=== PATIENT | female | born 1940 | race Caucasian/White ===

== ENCOUNTER 2019-07-06 16:32 | Emergency (ER) | payer OTHER, SELFPAY ==
--- NOTE | ~2019-07-06 | XR_ITS ---
EXAMINATION: XR chest 2V DATE: 07/06/2019 17:19 INDICATION: Shortness of breath, diffuse chest tightness, cough TECHNIQUE: PA and lateral views of the chest are obtained. COMPARISON: 04/06/2019 FINDINGS: The lungs are hyperinflated but free of acute opacities. There is no pleural effusion or pn eumothorax. The cardiomediastinal silhouette is normal. There is moderate thoracic spondylosis. IMPRESSION: 1. No acute cardiopulmonary abnormality. Reviewed, dictated and finalized at location A.
[2019-07-06 16:40] VITALS: BP 155/88; PULSE 71; RESP 20; TEMP 36.5; O2SAT 100
--- NOTE | 2019-07-06 16:49 | ED.SOB ---
HPI - SOB/Dyspnea General Chief Complaint: Shortness of Breath/Dyspnea Stated Complaint: tightness in chest, breathing troubles,cough Time Seen by Provider: 07/06/19 16:50 Source: patient and RN notes reviewed Mode of arrival: ambulatory Limitations: no limitations History of Present Illness HPI Narrative: 78-year-old female comes in with 1 weeks worth of symptoms. She feels short of breath a slight cough no fever. She has a history of COPD. She has been having the symptoms off and on every 6 weeks it returns. She is currently on steroids from her primary care physician. MD elicited complaint: shortness of breath Pertinent past history: COPD Onset (ago): week(s) (1) Timing: intermittent Severity: moderate Known history of: COPD Related Data Home oxygen amount: 2 liters Home Medications Medication Instructions Recorded Confirmed dicyclomine 20 mg PO TID PRN 04/21/19 07/06/19 fluticasone propionate [Flonase 1 spray NASAL BID 04/21/19 07/06/19 Allergy Relief] ipratropium bromide 2.5 ml INHALATION TID 04/21/19 07/06/19 Allergies Allergy/AdvReac Type Severity Reaction Status Date / Time morphine Allergy Intermediate 3 DAY Verified 05/02/19 16:20 MEMORY LOSS azithromycin Allergy Unknown N/V Verified 05/02/19 16:20 cephalexin Allergy Unknown N/V Verified 05/02/19 16:20 citalopram Allergy Unknown Unknown Verified 05/02/19 16:20 dicyclomine Allergy Unknown Unknown Verified 05/02/19 16:20 escitalopram Allergy Unknown Unknown Verified 05/02/19 16:20 iodine Allergy Unknown Unknown Verified 05/02/19 16:20 levofloxacin Allergy Unknown N/V Verified 05/02/19 16:20 levothyroxine sodium Allergy Unknown N/V Verified 05/02/19 16:20 methylprednisolone Allergy Unknown unknown Verified 05/02/19 16:20 mirtazapine Allergy Unknown unknown Verified 05/02/19 16:20 NSAIDS (Non-Steroidal Allergy Unknown unknown Verified 05/02/19 16:20 Anti-Inflamma pravastatin Allergy Unknown unknown Verified 05/02/19 16:20 Sulfa (Sulfonamide Allergy Unknown N/V Verified 05/02/19 16:20 Antibiotics) tetracycline Allergy Unknown N/V Verified 05/02/19 16:20 varenicline Allergy Unknown unknown Verified 05/02/19 16:20 doxycycline AdvReac Severe N/V Verified 05/02/19 16:20 Contrast Media Allergy Unknown UNKNOWN Uncoded 10/12/18 10:37 Review of Systems Review of Systems: All systems reviewed & are unremarkable except as noted in HPI and below PMFSH Past Medical History Medical History Allergic rhinitis Arrhythmia Arthritis COPD (chronic obstructive pulmonary disease) Depression DVT (deep venous thrombosis) GERD (gastroesophageal reflux disease) Hypertension Hypothyroidism Pneumonia Seasonal allergies Spinal stenosis Sweating Surgical History Surgical History H/O colectomy H/O parotidectomy History of cholecystectomy Social History Social History Smoking status: Light tobacco smoker Alcohol intake: never Substance use: never Substance use type: does not use Exam Const: General: healthy appearing, no acute distress and alert Nutritional Appearance: well nourished and thin Orientation/consciousness: patient oriented x3 HENMT: Head: normal to inspection Ears: external ears normal General nose exam: Normal external nose present Face and sinus: normal facial exam Mouth: Yes moist mucous membranes Eyes: Conjunctivae: conjunctivae normal Pupils: Equal, round and reactive pupils present EOM: EOMs intact bilaterally Neck: Neck: normal visual inspection and no lymphadenopathy Resp: Effort & Inspection: normal respiratory effort Auscultation: clear to auscultation bilaterally ( Short air exchange.) Cardio: Rate: regular rate Rhythm: regular rhythm GI: GI Palp: Yes Soft to palpation and No Tenderness to palpation present (GI) Auscultation: normal bowel sounds Urin
[2019-07-06 16:57] VITALS: O2SAT 100
[2019-07-06 17:28] LABS: Basophils Absolute Auto 0.01 K/mm3 (0.00-0.10); Basophils Percent Auto 0.2 % (0.0-1.0); Hematocrit 38.3 % (35.0-42.0); Hemoglobin 12.8 g/dL (11.7-13.8); Immature Granulocyte Absolute 0.03 K/mm3 (0.00-0.00); Immature Granulocyte Percent A 0.5 % (0.0-0.0); Lymphocytes Absolute Auto 0.66 K/mm3 (1.10-4.50); Lymphocytes Percent Auto 10.4 % (18.0-42.0); Mean Corpuscular HGB Conc 33.4 g/dL (32.0-36.0); Mean Corpuscular Hemoglobin 31.5 pg (27.0-31.0); Mean Corpuscular Volume 94.3 fL (78.0-102.0); Mean Platelet Volume 8.7 fl (9.2-11.8); Monocytes Absolute Auto 0.22 K/mm3 (0.10-0.90); Monocytes Percent Auto 3.5 % (2.0-11.0); Neutrophils Absolute Auto 5.5 K/mm3 (1.7-7.2); Neutrophils Percent Auto 85.4 % (50.0-70.0); Platelet Count Result 296 K/mm3 (150-420); Red Blood Count 4.06 M/mm3 (4.20-5.40); Red Cell Distribution Width 12.5 % (11.6-14.4); White Blood Count 6.4 K/mm3 (4.8-10.8)
[2019-07-06 17:43] LABS: Alanine Aminotransferase 32 U/L (14-59); Albumin Level 3.7 g/dL (3.4-5.0); Alkaline Phosphatase 76 U/L (46-116); Anion Gap 9.1 mmol/L (7-16); Aspartate Amino Transferase 17 U/L (15-37); Bilirubin,Total 0.2 mg/dL (0.00-1.00); Blood Urea Nitrogen 10 mg/dL (7-18); Calcium 9.3 mg/dL (8.5-10.1); Carbon Dioxide 34 mmol/L (21-32); Chloride 94 mmol/L (98-108); Estimated CRCL calculation 44 ml/min; Estimated Glomerular Filt Rate > 60; Glucose 114 mg/dL (70-99); Osmolality Calculated 276 mOsm/kg (285-295); Potassium 4.1 mmol/L (3.5-5.1); Sodium 133 mmol/L (136-145); Total Protein 6.8 g/dL (6.4-8.2)
[2019-07-06 17:45] LABS: CRP < 0.2 mg/dL (0.0-0.9)
[2019-07-06 18:04] LABS: Thyroid Stimulating Hormone 0.74 uIU/mL (0.36-3.74)
[2019-07-06] MEDS: AMOXICILLIN 500 MG CAPSULE PO (18:22)
[2019-07-06 18:23] VITALS: RESP 20; O2SAT 100
== END 2019-07-06 18:24 | disposition home or self-care (01) ==
PROVIDERS: Emergency Provider Emergency Medicine; PCP Family Medicine
DX: J44.9 Chronic obstructive pulmonary disease, unspecified (principal); K21.9 Gastro-esophageal reflux disease without esophagitis; I10 Essential (primary) hypertension; E03.9 Hypothyroidism, unspecified
CPT/HCPCS: 36415; 71046; 80053; 84443; 85025; 86140; 99283; A9270

== ENCOUNTER 2019-07-17 15:20 | Emergency (ER) | payer OTHER, SELFPAY ==
[2019-07-17 15:35] VITALS: BP 126/76; PULSE 65; RESP 13; TEMP 36.6; O2SAT 100
--- NOTE | 2019-07-17 16:24 | ED.SOB ---
HPI - SOB/Dyspnea General Chief Complaint: Shortness of Breath/Dyspnea Stated Complaint: SOB Source: patient Mode of arrival: ambulatory History of Present Illness HPI Narrative: 78 y.o. with COPD with frequent exacerbations over the past 3 months. Seen on 07/05 when she was given Amoxil 500 mg TID x 10 days and Prednisone 10 mg daily x 18 d. (long enough to get her in to see Dr. Luciano, Pul. at [facility]). She didn't feel like 10 mg really helped. Over the last few months she always feels better when she is on higher dose prednisone but gradually worsens off of it. She feels okay when she's in a chair with her O2 on at 2 liters, but is unable to walk and talk on the phone when she's off her O2. Today she is feeling her SOB has worsened a small amount over the past 2 days. She has actually been coughing less than usual, but her usual amount (about 1 medicine cup full) of cloudy white sputum. She contacted Dr Luciano's office to see if she could be put in higher dose predisone to last until her appt. on 07/24. She was told to be seen in the E.D. She is nebulizing her 3 albuterol, ipratropium and budesonide as directed daily. Pt. c/o of chronic nasal congestion x years; feels if she could only breath through her nose she'd be so much better. She tries not to use O2 all of the time because she's afraid she'll become dependent on it. No hx of cancer, DVT, PE, recent surgery or immobility. Exacerbating factors: lying flat and exertion Relieving factors: oxygen Associated symptoms: chest pain (About once a day she has tightness in her chest which lasts less than 1 -2 min ) Related Data Home Medications Medication Instructions Recorded Confirmed dicyclomine 20 mg PO TID PRN 04/21/19 07/17/19 fluticasone propionate [Flonase 1 spray NASAL BID 04/21/19 07/17/19 Allergy Relief] ipratropium bromide 2.5 ml INHALATION TID 04/21/19 07/17/19 Allergies Allergy/AdvReac Type Severity Reaction Status Date / Time morphine Allergy Intermediate 3 DAY Verified 05/02/19 16:20 MEMORY LOSS azithromycin Allergy Unknown N/V Verified 05/02/19 16:20 cephalexin Allergy Unknown N/V Verified 05/02/19 16:20 citalopram Allergy Unknown Unknown Verified 05/02/19 16:20 dicyclomine Allergy Unknown Unknown Verified 05/02/19 16:20 escitalopram Allergy Unknown Unknown Verified 05/02/19 16:20 iodine Allergy Unknown Unknown Verified 05/02/19 16:20 levofloxacin Allergy Unknown N/V Verified 05/02/19 16:20 levothyroxine sodium Allergy Unknown N/V Verified 05/02/19 16:20 methylprednisolone Allergy Unknown unknown Verified 05/02/19 16:20 mirtazapine Allergy Unknown unknown Verified 05/02/19 16:20 NSAIDS (Non-Steroidal Allergy Unknown unknown Verified 05/02/19 16:20 Anti-Inflamma pravastatin Allergy Unknown unknown Verified 05/02/19 16:20 Sulfa (Sulfonamide Allergy Unknown N/V Verified 05/02/19 16:20 Antibiotics) tetracycline Allergy Unknown N/V Verified 05/02/19 16:20 varenicline Allergy Unknown unknown Verified 05/02/19 16:20 doxycycline AdvReac Severe N/V Verified 05/02/19 16:20 Contrast Media Allergy Unknown UNKNOWN Uncoded 10/12/18 10:37 Review of Systems Constitutional: Constitutional: Denies chills and Denies fever(s) ENT: Reports system reviewed and no additional complaints, except as documented Cardiovascular: Cardiovascular: Reports no additional cardiovascular complaints Respiratory: Respiratory: Reports no additional respiratory complaints Gastrointestinal: Comments: chronic diarrhea since colectomy Genitourinary: Genitourinary: Denies dysuria Musculoskeletal: Musculoskeletal: Reports muscle cramps (toes have been cramping the last few days. ) Neurologic: Denies headache(s) Psychiatric: Comments: Chronic anxiety, possibly somewhat worse over the last month, since outbreak of Covid-19 [facility] Social History Social History (Updated 07/17/19 @ 17:03 by Felix Steven MD) Social History: lives at home. Children visit every few weeks, bring groc
[2019-07-17 16:37] VITALS: RESP 15; O2SAT 100
== END 2019-07-17 16:46 | disposition home or self-care (01) ==
PROVIDERS: Emergency Provider Family Medicine; PCP Family Medicine
DX: J44.1 Chronic obstructive pulmonary disease with (acute) exacerbation (principal); F17.200 Nicotine dependence, unspecified, uncomplicated
CPT/HCPCS: 99283

== ENCOUNTER 2019-08-17 09:03 | Outpatient (CLI) | payer OTHER, SELFPAY ==
--- NOTE | ~2019-08-17 | XR_ITS ---
XR chest 2V DATE: 08/17/2019 09:33 INDICATION: Shortness of breath. COPD. TECHNIQUE: 2 views COMPARISON: 07/05/2021 view chest FINDINGS: Bilateral hyperinflation and relative diaphragm flattening consistent with COPD. No pulmonary infiltrate or consolidation, pleural effusion or pulmonary vascular congestion or pneumo thorax is detected. Central pulmonary arteries are prominent with relatively quick peripheral tapering, suggesting pulmon shant hypertension. No hilar or mediastinal mass lesion or adenopathy is evident. Heart size is within normal limits. Is aortic calcification and mild tortuosity. Diffuse osteopenia. IMPRESSION: COPD and pulmonary hypertension Aortic atherosclerosis No active pulmonary disease Reviewed, dictated and finalized at location A.
[2019-08-17 09:17] LABS: Basophils Absolute Auto 0.03 K/mm3 (0.00-0.10); Basophils Percent Auto 0.3 % (0.0-1.0); Eosinophils Absolute Auto 0.19 K/mm3 (0.02-0.50); Eosinophils Percent Auto 2.1 % (1.0-6.0); Hematocrit 39.9 % (35.0-42.0); Hemoglobin 13.3 g/dL (11.7-13.8); Immature Granulocyte Absolute 0.05 K/mm3 (0.00-0.00); Immature Granulocyte Percent A 0.6 % (0.0-0.0); Lymphocytes Absolute Auto 3.11 K/mm3 (1.10-4.50); Mean Corpuscular HGB Conc 33.3 g/dL (32.0-36.0); Mean Corpuscular Volume 96.1 fL (78.0-102.0); Mean Platelet Volume 8.3 fl (9.2-11.8); Monocytes Absolute Auto 0.84 K/mm3 (0.10-0.90); Monocytes Percent Auto 9.5 % (2.0-11.0); Neutrophils Absolute Auto 4.7 K/mm3 (1.7-7.2); Neutrophils Percent Auto 52.5 % (50.0-70.0); Platelet Count Result 298 K/mm3 (150-420); Red Blood Count 4.15 M/mm3 (4.20-5.40); Red Cell Distribution Width 12.4 % (11.6-14.4); White Blood Count 8.9 K/mm3 (4.8-10.8)
[2019-08-17 09:59] LABS: Hemoglobin A1C 6.3 % (<5.7)
[2019-08-17 10:05] LABS: Alanine Aminotransferase 38 U/L (14-59); Albumin Level 3.8 g/dL (3.4-5.0); Alkaline Phosphatase 76 U/L (46-116); Anion Gap 8.8 mmol/L (7-16); Aspartate Amino Transferase 22 U/L (15-37); Bilirubin,Total 0.2 mg/dL (0.00-1.00); Blood Urea Nitrogen 11 mg/dL (7-18); Calcium 9.4 mg/dL (8.5-10.1); Carbon Dioxide 35 mmol/L (21-32); Chloride 97 mmol/L (98-108); Estimated Glomerular Filt Rate > 60; Glucose 80 mg/dL (70-99); Osmolality Calculated 282 mOsm/kg (285-295); Potassium 3.8 mmol/L (3.5-5.1); Sodium 137 mmol/L (136-145); Thyroid Stimulating Hormone 4.86 uIU/mL (0.36-3.74); Total Protein 6.6 g/dL (6.4-8.2)
[2019-08-21 22:27] LABS: Albumin 3.9 g/dL (3.8-4.8); Alpha 1 Globulin 0.3 g/dL (0.2-0.3); Alpha 2 Globulin 0.7 g/dL (0.5-0.9); Beta 1 Globulin 0.5 g/dL (0.4-0.6); Gamma Globulin 0.7 g/dL (0.8-1.7); Protein, Total 6.3 g/dL (6.1-8.1)
== END 2019-08-17 09:04 | disposition home or self-care (01) ==
PROVIDERS: PCP Family Medicine; Visit Provider Physician Assistant
DX: R53.83 Other fatigue (principal); R73.9 Hyperglycemia, unspecified; R06.02 Shortness of breath
CPT/HCPCS: 36415; 71046; 80053; 83036; 84155; 84165; 84443; 85025

== ENCOUNTER 2019-08-18 09:00 | Outpatient (CLI) | payer OTHER, SELFPAY ==
[2019-08-23 16:06] LABS: Albumin 24 Hr Urine 38 %; Creatinine, 24 Hr Urine 0.54 g/24 h (0.50-2.15); Total Protein/Creatinine Ratio 369 mg/g creat (<115)
== END 2019-08-18 09:01 | disposition home or self-care (01) ==
LOC: CHSLAB 09:02
PROVIDERS: Physician Assistant; PCP Family Medicine; Visit Provider Family Medicine
DX: R53.83 Other fatigue (principal)
CPT/HCPCS: 81050; 82570; 84156; 84166

== ENCOUNTER 2019-09-19 15:35 | Outpatient (RCR) | payer OTHER, SELFPAY ==
[2019-09-19 16:03] LABS: Basophils Percent Auto 0.3 % (0.2-1.2); Eosinophils Absolute Auto 0.1 K/mm3 (0-0.3); Eosinophils Percent Auto 0.4 % (0-4.4); Hematocrit 40.9 % (37.0-47.0); Hemoglobin 13.6 g/dL (12.0-15.0); Immature Granulocyte Absolute 0.05 K/mm3 (0.00-0.031); Immature Granulocyte Percent A 0.4 % (0-0.5); Lymphocytes Absolute Auto 1.12 K/mm3 (0.9-3.2); Lymphocytes Percent Auto 9.4 % (18.3-44.2); Mean Corpuscular HGB Conc 33.3 g/dl (32-36); Mean Corpuscular Hemoglobin 31.6 pg (26-34); Mean Corpuscular Volume 95.1 fl (80-100); Monocytes Absolute Auto 0.4 K/mm3 (0.1-0.6); Monocytes Percent Auto 3.3 % (2.6-8.5); Neutrophils Absolute Auto 10.3 K/mm3 (1.3-6.7); Neutrophils Percent Auto 86.2 % (45.5-73.1); Platelet Count Result 307 k/mm3 (150-375); Red Cell Distribution Width 12.2 % (11.5-14.5); White Blood Count 11.9 K/mm3 (4.5-10.0)
[2019-09-19 17:42] LABS: Iron 112 ug/dL (37-170)
[2019-09-19 17:44] LABS: Alanine Aminotransferase 29 U/L (4-35); Albumin Level 4.3 g/dL (3.5-5.1); Alkaline Phosphatase 82 U/L (38-126); Aspartate Amino Transferase 26 U/L (14-36); Bilirubin,Total 0.4 mg/dL (0.2-1.3); Blood Urea Nitrogen 12 mg/dL (7-17); Calcium 9.3 mg/dL (8.4-10.2); Carbon Dioxide 34 mmol/L (22-30); Chloride 88 mmol/L (98-107); Estimated Glomerular Filt Rate > 60; Glucose 123 mg/dL (65-105); Lactate Dehydrogenase 305 U/L (313-618); Potassium 4.1 mmol/L (3.4-5.0); Sodium 129 mmol/L (137-145)
[2019-09-19 17:53] LABS: Percent Iron Saturation 30 % (20-50)
[2019-09-19 18:13] LABS: Thyroid Stimulating Hormone 0.541 uIU/mL (0.465-4.680)
[2019-09-19 18:52] LABS: Folic Acid > 20.0 ng/mL (2.76->20)
[2019-09-22 19:37] LABS: Methylmalonic Acid 357 nmol/L (87-318)
[2019-09-23 18:02] LABS: Soluble Transferrin Receptor 1.16 mg/L (0.76-1.76)
== END 2019-12-18 23:59 | disposition home or self-care (01) ==
LOC: ANHLAB 15:35
PROVIDERS: Visit Provider Internal Medicine Hematology & Oncology
DX: D64.9 Anemia, unspecified (principal)
CPT/HCPCS: 36415; 80053; 82607; 82728; 82746; 83540; 83550; 83615; 83921; 84238; 84443; 85025

== ENCOUNTER 2020-07-21 14:55 | Emergency (ER) | payer OTHER, SELFPAY ==
--- NOTE | ~2020-07-21 | XR_ITS ---
EXAMINATION: XR lumbar spine 2-3V EXAM DATE: 07/21/2020 16:54 INDICATION: Low back pain for a week. No known recent injury. TECHNIQUE: Lumber spine frontal, lateral, lateral L5-S1 projections for interpretation. Comparison is made to prior examination from 08/01/2015. FINDINGS: There is mild to moderate anterior wedging of T12 vertebral body, could be chronic but is new compared to 2016, therefore age-indeterminate. There is severe disc disease L4-5, moderate to sev ere at L5-S1, moderate at L2-3 and L3-4. There is moderate lumbar arthropathy. Moderate aortic arteri al sclerosis. Cholecystectomy clips. The vertebral bodies are aligned in the AP dimension. Sacrum, sa croiliac joints, sacral arcuate lines are intact. IMPRESSION: 1. T12 mild to moderate age-indeterminate compression fracture. 2. Moderate to severe lower lumbar spondylosis. Reviewed, dictated and finalized at location A.
[2020-07-21 16:19] VITALS: BP 120/80; PULSE 90; RESP 16; TEMP 36.6; O2SAT 95
[2020-07-21 16:32] LABS: Appearance Urine Clear (Clear); Bilirubin Urine Negative (Negative); Color Urine Yellow (Yellow); Glucose Urine UA Negative (Negative); Ketones Urine Negative (Negative); Leukocyte Esterase Ur Trace (Negative); Nitrate Urine Negative (Negative); Protein Urine Negative (Negative); Urobilinogen Urine 0.2 mg/dL (0.2-1.0)
--- NOTE | 2020-07-21 16:41 | ED.BACK ---
HPI - Back Pain/Injury General Chief Complaint: Unspecified Stated Complaint: lower back pain Source: patient Mode of arrival: ambulatory Limitations: no limitations Related Data Home Medications Medication Instructions Recorded Confirmed dicyclomine 20 mg PO TID PRN 04/21/19 10/24/19 Allergies Allergy/AdvReac Type Severity Reaction Status Date / Time morphine Allergy Intermediate 3 DAY Verified 10/24/19 10:53 MEMORY LOSS azithromycin Allergy Unknown N/V Verified 10/24/19 10:53 cephalexin Allergy Unknown N/V Verified 10/24/19 10:53 citalopram Allergy Unknown Unknown Verified 10/24/19 10:53 dicyclomine Allergy Unknown Unknown Verified 10/24/19 10:53 escitalopram Allergy Unknown Unknown Verified 10/24/19 10:53 iodine Allergy Unknown Unknown Verified 10/24/19 10:53 levofloxacin Allergy Unknown N/V Verified 10/24/19 10:53 levothyroxine sodium Allergy Unknown N/V Verified 10/24/19 10:53 methylprednisolone Allergy Unknown unknown Verified 10/24/19 10:53 mirtazapine Allergy Unknown unknown Verified 10/24/19 10:53 NSAIDS (Non-Steroidal Allergy Unknown unknown Verified 10/24/19 10:53 Anti-Inflamma pravastatin Allergy Unknown unknown Verified 10/24/19 10:53 Sulfa (Sulfonamide Allergy Unknown N/V Verified 10/24/19 10:53 Antibiotics) tetracycline Allergy Unknown N/V Verified 10/24/19 10:53 varenicline Allergy Unknown unknown Verified 10/24/19 10:53 doxycycline AdvReac Severe N/V Verified 10/24/19 10:53 Contrast Media Allergy Unknown UNKNOWN Uncoded 10/12/18 10:37 [facility] Past Medical History Medical History (Updated 07/21/20 @ 17:46 by Jefry Castro MD) Allergic rhinitis Arrhythmia Arthritis COPD (chronic obstructive pulmonary disease) Depression DVT (deep venous thrombosis) GERD (gastroesophageal reflux disease) Hypertension Hypothyroidism Pneumonia Seasonal allergies Spinal stenosis Sweating Surgical History Surgical History H/O colectomy H/O parotidectomy History of cholecystectomy Family History Family History Mother Family history of malignant neoplasm of breast in first degree relative Family history of malignant neoplasm Family history of malignant neoplasm of bone Family history of malignant neoplasm of breast Father Cerebrovascular accident Sibling Family history of malignant neoplasm Social History Social History (Updated 10/24/19 @ 10:57 by Alice Ding) Social History: lives at home. Children visit every few weeks, bring groceries, adhere to social distancing. Pt. has been using hand keeper helper and disinfecting surfaces. Smoking status: Light tobacco smoker Alcohol intake: never Substance use: never Substance use type: does not use Gender identity (if verbalized by the patient): Female Course Vital Signs Vital signs: Vital Signs Temperature 36.6 C 07/21/20 16:19 Pulse Rate 90 07/21/20 16:19 Respiratory Rate 16 07/21/20 16:19 Blood Pressure 120/80 07/21/20 16:19 Pulse Oximetry 95 07/21/20 16:19 Temperature 36.6 C 07/21/20 16:19 Pulse Rate 90 07/21/20 16:19 Respiratory Rate 16 07/21/20 16:19 Blood Pressure 120/80 07/21/20 16:19 Pulse Oximetry 95 07/21/20 16:19 MDM - Back Pain/Injury Lab Data Labs: Lab Results 07/21/20 Range/Units 16:22 Urine Color Pending Urine Appearance Pending Urine pH Pending Ur Specific Jet Pending Urine Protein Pending Urine Glucose (UA) Pending Urine Ketones Pending Ur Blood (Man) Pending Urine Nitrate Pending Urine Bilirubin Pending Urine Urobilinogen Pending Ur Leukocyte Esterase Pending Discharge Plan Discharge Clinical Impression: Compression fracture, Back pain, Acute UTI Patient Disposition: Home, Self-Care Condition: Stable Instructions: Antibiotic Form, Vertebral Compression Fracture (ED), Urinar
[2020-07-21 16:46] LABS: Add Urine Microscopic? YES; Blood Urine Trace-Intact (Negative); Squamous Epithelial Cell Urine Moderate /hpf (Few); WBC Urine 0-3 /hpf (0-3)
[2020-07-21 16:47] LABS: Bacteria Urine Trace /hpf
[2020-07-21] MEDS: DEXAMETHASONE SOD PHOS INJ 4 MG/ML VIAL 10 MG BY MOUTH (17:07)
[2020-07-21] MEDS: BACLOFEN 10 MG TABLET 20 MG PO (17:07)
[2020-07-21] MEDS: KETOROLAC 30 MG/ML VIAL (*BKC) IM (17:07)
--- NOTE | 2020-07-21 17:48 | ED.BACK ---
HPI - Back Pain/Injury General Chief Complaint: Unspecified Stated Complaint: lower back pain Time Seen by Provider: 07/21/20 16:25 Source: patient Mode of arrival: ambulatory Limitations: no limitations History of Present Illness HPI Narrative: Patient comes in with back pain, at about T12, which has been going on since that has been moderately severe and ongoing. This started spontaneously after reaching in an unusual way. She states Tylenol #3 given by another provider has made her nauseated. Nothing has really helped her to feel any better. Because pain has been ongoing, she comes into ER Related Data Home Medications Medication Instructions Recorded Confirmed dicyclomine 20 mg PO TID PRN 04/21/19 10/24/19 Allergies Allergy/AdvReac Type Severity Reaction Status Date / Time morphine Allergy Intermediate 3 DAY Verified 10/24/19 10:53 MEMORY LOSS azithromycin Allergy Unknown N/V Verified 10/24/19 10:53 cephalexin Allergy Unknown N/V Verified 10/24/19 10:53 citalopram Allergy Unknown Unknown Verified 10/24/19 10:53 dicyclomine Allergy Unknown Unknown Verified 10/24/19 10:53 escitalopram Allergy Unknown Unknown Verified 10/24/19 10:53 iodine Allergy Unknown Unknown Verified 10/24/19 10:53 levofloxacin Allergy Unknown N/V Verified 10/24/19 10:53 levothyroxine sodium Allergy Unknown N/V Verified 10/24/19 10:53 methylprednisolone Allergy Unknown unknown Verified 10/24/19 10:53 mirtazapine Allergy Unknown unknown Verified 10/24/19 10:53 NSAIDS (Non-Steroidal Allergy Unknown unknown Verified 10/24/19 10:53 Anti-Inflamma pravastatin Allergy Unknown unknown Verified 10/24/19 10:53 Sulfa (Sulfonamide Allergy Unknown N/V Verified 10/24/19 10:53 Antibiotics) tetracycline Allergy Unknown N/V Verified 10/24/19 10:53 varenicline Allergy Unknown unknown Verified 10/24/19 10:53 doxycycline AdvReac Severe N/V Verified 10/24/19 10:53 Contrast Media Allergy Unknown UNKNOWN Uncoded 10/12/18 10:37 [facility] Past Medical History Medical History (Updated 07/21/20 @ 17:46 by Jefry Castro MD) Allergic rhinitis Arrhythmia Arthritis COPD (chronic obstructive pulmonary disease) Depression DVT (deep venous thrombosis) GERD (gastroesophageal reflux disease) Hypertension Hypothyroidism Pneumonia Seasonal allergies Spinal stenosis Sweating Surgical History Surgical History H/O colectomy H/O parotidectomy History of cholecystectomy Family History Family History Mother Family history of malignant neoplasm of breast in first degree relative Family history of malignant neoplasm Family history of malignant neoplasm of bone Family history of malignant neoplasm of breast Father Cerebrovascular accident Sibling Family history of malignant neoplasm Social History Social History (Updated 10/24/19 @ 10:57 by Alice Ding) Social History: lives at home. Children visit every few weeks, bring groceries, adhere to social distancing. 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 Smoking status: Light tobacco smoker Alcohol intake: never Substance use: never Substance use type: does not use Gender identity (if verbalized by the patient): Female Course Vital Signs Vital signs: Vital Signs Temperature 36.6 C 07/21/20 16:19 Pulse Rate 90 07/21/20 16:19 Respiratory Rate 16 07/21/20 16:19 Blood Pressure 120/80 07/21/20 16:19 Pulse Oximetry 95 07/21/20 16:19 Temperature 36.6 C 07/21/20 16:19 Pulse Rate 90 07/21/20 16:19 Respiratory Rate 16 07/21/20 16:19 Blood Pressure 120/80 07/21/20 16:19 Pulse Oximetry 95 07/21/20 16:19 MDM - Back Pain/Injury Lab Data Labs: Lab Results 07/21/20 Range/Units 16:22 Urine Color Yellow (Yellow) Urine Appearance Clear (Clear) Urine pH 7.0 (5.0-8.0) Ur Specific [place] 1.
[2020-07-21 18:20] VITALS: BP 120/80; PULSE 78; RESP 16; TEMP 37; O2SAT 100
--- NOTE | 2020-07-21 19:27 | ED.GENADULT ---
HPI - General Adult General Chief complaint: Unspecified Stated complaint: lower back pain Time Seen by Provider: 07/21/20 16:25 Source: patient Mode of arrival: ambulatory Limitations: no limitations History of Present Illness HPI narrative: Patient comes in with back pain. She had been given flexaril and tylenol #3 by the provider that she sees. She had been unable to take this due to nausea. Pain has been moderately severe and ongoing, not relieved by measures taken at home. Pain is sharp and located in low thoracic spine area. Pain is worse with movement. Related Data Home Medications Medication Instructions Recorded Confirmed dicyclomine 20 mg PO TID PRN 04/21/19 10/24/19 Allergies Allergy/AdvReac Type Severity Reaction Status Date / Time morphine Allergy Intermediate 3 DAY Verified 10/24/19 10:53 MEMORY LOSS azithromycin Allergy Unknown N/V Verified 10/24/19 10:53 cephalexin Allergy Unknown N/V Verified 10/24/19 10:53 citalopram Allergy Unknown Unknown Verified 10/24/19 10:53 dicyclomine Allergy Unknown Unknown Verified 10/24/19 10:53 escitalopram Allergy Unknown Unknown Verified 10/24/19 10:53 iodine Allergy Unknown Unknown Verified 10/24/19 10:53 levofloxacin Allergy Unknown N/V Verified 10/24/19 10:53 levothyroxine sodium Allergy Unknown N/V Verified 10/24/19 10:53 methylprednisolone Allergy Unknown unknown Verified 10/24/19 10:53 mirtazapine Allergy Unknown unknown Verified 10/24/19 10:53 NSAIDS (Non-Steroidal Allergy Unknown unknown Verified 10/24/19 10:53 Anti-Inflamma pravastatin Allergy Unknown unknown Verified 10/24/19 10:53 Sulfa (Sulfonamide Allergy Unknown N/V Verified 10/24/19 10:53 Antibiotics) tetracycline Allergy Unknown N/V Verified 10/24/19 10:53 varenicline Allergy Unknown unknown Verified 10/24/19 10:53 doxycycline AdvReac Severe N/V Verified 10/24/19 10:53 Contrast Media Allergy Unknown UNKNOWN Uncoded 10/12/18 10:37 Review of Systems Constitutional: Constitutional: Reports no additional constitutional complaints Eyes: Eyes: Reports no additional eye complaints ENT: Reports system reviewed and no additional complaints, except as documented Cardiovascular: Cardiovascular: Reports no additional cardiovascular complaints Respiratory: Respiratory: Reports no additional respiratory complaints Gastrointestinal: Gastrointestinal: Reports no additional gastrointestinal complaints Genitourinary: Genitourinary: Reports no additional female genitourinary complaints Musculoskeletal: Musculoskeletal: Reports no additional musculoskeletal complaints Integumentary/Breasts: Skin/Breast: Reports system reviewed and no additional complaints, except as docu Neurologic: Reports system reviewed and no additional complaints, except as documented Psychiatric: Psychiatric: Reports no additional psychiatric complaints Endocrine: Endocrine: Reports no additional endocrine complaints Hematologic/Lymphatic: Hematologic/Lymphatic: Reports no additional hematologic/lymphatic complaints Allergic/Immunologic: Allergic/Immunologic: Reports no additional allergic/immunologic complaints [facility] Past Medical History Medical History Allergic rhinitis Arrhythmia Arthritis COPD (chronic obstructive pulmonary disease) Depression DVT (deep venous thrombosis) GERD (gastroesophageal reflux disease) Hypertension Hypothyroidism Pneumonia Seasonal allergies Spinal stenosis Sweating Surgical History Surgical History H/O colectomy H/O parotidectomy History of cholecystectomy Family History Family History Mother Family history of malignant neoplasm of breast in first degree relative Family history of malignant neoplasm Family history of malignant neoplasm of bone Family history of malignant neoplasm of breast Father Cerebrovascula
== END 2020-07-21 18:21 | disposition home or self-care (01) ==
PROVIDERS: Emergency Provider Emergency Medicine; PCP Family Medicine
DX: M48.50XA Collapsed vertebra, not elsewhere classified, site unspecified, initial encounter for fracture (principal); N39.0 Urinary tract infection, site not specified; M54.5 Low back pain; J44.9 Chronic obstructive pulmonary disease, unspecified; I10 Essential (primary) hypertension; E03.9 Hypothyroidism, unspecified
CPT/HCPCS: 72100; 81001; 96372; 99283; A9270; J1100; J1885

== ENCOUNTER 2020-08-15 12:07 | Emergency (ER) | payer OTHER, MEDICARE, SELFPAY ==
--- NOTE | ~2020-08-15 | XR_ITS ---
EXAMINATION: XR chest 1V portable EXAM DATE: 08/15/2020 14:03 INDICATION: Fever and weakness. TECHNIQUE: Portable AP frontal chest x-ray was obtained. Comparison is made to prior examination from 08/17/2019. FINDINGS: The lungs are hyperinflated which can be seen with chronic obstructive pulmonary disease (a clinical diagnosis of functional impairment), but is not diagnostic of it. No confluent consolidation, pneum othorax or pleural effusion suspected. Cardiomediastinal silhouette is normal. The bones are osteopen ic. There are bony degenerative changes. IMPRESSION: Chronic hyperinflation. Reviewed, dictated and finalized at location A. IMPRESSION: Chronic hyperinflation.
--- NOTE | ~2020-08-15 | CT_ITS ---
EXAMINATION: CT lumbar spine [facility] EXAM DATE: 08/15/2020 15:51 INDICATION: T12 fracture. TECHNIQUE: Spiral CT lumbar spine was performed without contrast. Axial, coronal and sagittal images of the lumbar spine were reviewed. The dose-length product (DLP) for this examination was 177.43 mGy- cm. The exposure was tailored according to patient size (auto mA exposure control), and iterative re construction (ASIR) was used as additional dose reduction technique. Correlation is made to lumbar x- ray 07/21/2020. FINDINGS: There is a T12 fracture with moderate to severe loss of the height centrally and anteriorly, mild to moderate loss of the posterior vertebral body height which technically makes this a burst fracture, w ith only about 2 mm retropulsion. This level had mild to moderate anterior wedged appearance on lumba r x-ray earlier this month, has progressed so has an acute component to it. Additionally, subtle lucency through the T11 spinous process identified on the sagittal and coronal i mages, probably acute nondisplaced fracture. This finding has been indicated, marked on the examinati on for review, clinical correlation. No widening of the interspinous distance, however anterior, mi ddle and posterior columns now believed to be involved with this injury; potentially could be unstabl e. The sacroiliac joints are intact. Moderate to severe L4-5 disc disease with grade 1 anterolisthesis, no spondylolysis. There is moderate to severe left neural foraminal stenosis at L4-5 due to bulge ext ending into the neural foramina, and moderate to severe right neural foraminal stenosis L5-S1. Otherw ise only mild to moderate neural foraminal stenosis. L4 and L5 laminectomies, posterior decompressive surgery. No significant central canal stenosis. Moderate to severe lower lumbar facet arthropathy. IMPRESSION: Progression of T12 fracture, now moderate to severe loss of its height anterior and mid a spect with involvement of the middle column, and the posterior column at T11. Potentially unstable ty pe injury. Spondylosis. Reviewed, dictated and finalized at location A. IMPRESSION: Progression of T12 fracture, now moderate to severe loss of its hei ght anterior and mid aspect with involvement of the middle column, and the post erior column at T11. Potentially unstable type injury. Spondylosis.
[2020-08-15 12:09] VITALS: BP 101/60; PULSE 74; RESP 22; TEMP 37.8; O2SAT 98
--- NOTE | 2020-08-15 12:54 | PC.NURSE ---
Spoke with pt's daughter Irma on telephone, states pt had back fx a few weeks ago and has been taking 0.5mg or 0.10mg morphine q2 prn. Daughter states pt has been unresponsive for a few days and has just been sitting in a chair, I don't want her to of a morphine overdose and I'm not ready to let her yet because of a back fracture
--- NOTE | 2020-08-15 13:10 | PC.NURSE ---
case management at bedside to speak with pt
--- NOTE | 2020-08-15 13:36 | ECG_ITS ---
Measurements Intervals [place] Rate: 71 P: 79 TN: 143 QRS: 80 QRSD: 114 T: 81 QT: 374 QTc: 407 Interpretive Statements SINUS RHYTHM ATRIAL PREMATURE COMPLEX POSSIBLE RIGHT ATRIAL ENLARGEMENT POSSIBLE LEFT ATRIAL ENLARGEMENT INTRAVENTRICULAR CONDUCTION DELAY BORDERLINE T WAVE ABNORMALITY- ANT/HIGH LAT LEADS BASELINE ARTIFACT- I, III, V6 BORDERLINE ECG Electronically Signed On 08-15-2020 15:27:44 CDT by Yifan Ferrer D.O.
[2020-08-15 13:56] LABS: Basophils Percent Auto 0.5 % (0.2-1.2); Eosinophils Absolute Auto 0.2 K/mm3 (0-0.3); Eosinophils Percent Auto 2.8 % (0-4.4); Hematocrit 37.5 % (37.0-47.0); Hemoglobin 12.5 g/dL (12.0-15.0); Immature Granulocyte Absolute 0.04 K/mm3 (0.00-0.031); Immature Granulocyte Percent A 0.5 % (0-0.5); Lymphocytes Absolute Auto 0.73 K/mm3 (0.9-3.2); Lymphocytes Percent Auto 8.4 % (18.3-44.2); Mean Corpuscular HGB Conc 33.3 g/dl (32-36); Mean Corpuscular Volume 95.9 fl (80-100); Mean Platelet Volume 8.8 fl (7.4-10.4); Monocytes Absolute Auto 1.2 K/mm3 (0.1-0.6); Monocytes Percent Auto 13.2 % (2.6-8.5); Neutrophils Absolute Auto 6.5 K/mm3 (1.3-6.7); Neutrophils Percent Auto 74.6 % (45.5-73.1); Platelet Count Result 215 k/mm3 (150-375); Red Blood Count 3.91 M/mm3 (4.2-5.4); Red Cell Distribution Width 12.2 % (11.5-14.5); White Blood Count 8.7 K/mm3 (4.5-10.0)
[2020-08-15 14:05] LABS: Lactic Acid Reflex 1.1 mmol/L (0.7-2.1)
[2020-08-15 14:08] LABS: INR 0.9; Partial Thromboplastin Time 29.6 SECONDS (22.3-36.8); Prothrombin Time 13.1 Seconds (11.1-14.7)
[2020-08-15 14:09] LABS: Alanine Aminotransferase 23 U/L (4-35); Albumin Level 3.6 g/dL (3.5-5.1); Alkaline Phosphatase 93 U/L (38-126); Anion Gap 1 mmol/L (8-16); Aspartate Amino Transferase 25 U/L (14-36); Bilirubin,Total 0.2 mg/dL (0.2-1.3); Blood Urea Nitrogen 11 mg/dL (7-17); CRP 7.1 mg/dL (<1.0); Calcium 8.6 mg/dL (8.4-10.2); Carbon Dioxide 38 mmol/L (22-30); Chloride 89 mmol/L (98-107); Estimated Glomerular Filt Rate > 60; Glucose 109 mg/dL (65-105); Potassium 3.9 mmol/L (3.4-5.0); Sodium 128 mmol/L (137-145)
--- NOTE | 2020-08-15 14:10 | PC.NURSE ---
Spoke with LEYDA Fortune about ekg and blood orders, verbal order to hold ekg and bloodwork until he speaks with pt and family.
--- NOTE | 2020-08-15 14:11 | PC.NURSE ---
Awaiting LEYDA nolan to go speak with pt.
--- NOTE | 2020-08-15 14:18 | ED.GENADULT ---
HPI - General Adult General Chief complaint: Weakness Stated complaint: MULTIPLE C/O Time Seen by Provider: 08/15/20 13:34 Source: patient, family and EMS Mode of arrival: EMS Limitations: no limitations and dementia History of Present Illness HPI narrative: Patient is 79 years old white female brought to the ED from home by ambulance with her daughter because of lower back pain which started on July 20, 2020. Patient had slight dementia, the family are not sure if the patient had a fall at home or not. Patient lives alone. X-ray lumbar spine on July 21, 2020 showed T12 mild to moderate age-indeterminate compression fracture. Currently patient is hospice because of chronic COPD. Started on morphine 5 mg every 2 hours as needed later increased to 10 mg every 2 hours as needed. 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 Over the last 3 days patient been out of it because been taking too much morphine. The daughter is wondering that patient need to go to rehab Patient denies any fever, chills, nausea, vomiting, any recent trauma. Patient denies any focal neuro deficit Related Data Home Medications Medication Instructions Recorded Confirmed dicyclomine 20 mg PO TID PRN 04/21/19 10/24/19 Allergies Allergy/AdvReac Type Severity Reaction Status Date / Time morphine Allergy Intermediate 3 DAY Verified 08/15/20 12:16 MEMORY LOSS azithromycin Allergy Unknown N/V Verified 08/15/20 12:16 cephalexin Allergy Unknown N/V Verified 08/15/20 12:16 citalopram Allergy Unknown Unknown Verified 08/15/20 12:16 dicyclomine Allergy Unknown Unknown Verified 08/15/20 12:16 escitalopram Allergy Unknown Unknown Verified 08/15/20 12:16 iodine Allergy Unknown Unknown Verified 08/15/20 12:16 levofloxacin Allergy Unknown N/V Verified 08/15/20 12:16 levothyroxine sodium Allergy Unknown N/V Verified 08/15/20 12:16 methylprednisolone Allergy Unknown unknown Verified 08/15/20 12:16 mirtazapine Allergy Unknown unknown Verified 08/15/20 12:16 NSAIDS (Non-Steroidal Allergy Unknown unknown Verified 08/15/20 12:16 Anti-Inflamma pravastatin Allergy Unknown unknown Verified 08/15/20 12:16 Sulfa (Sulfonamide Allergy Unknown N/V Verified 08/15/20 12:16 Antibiotics) tetracycline Allergy Unknown N/V Verified 08/15/20 12:16 varenicline Allergy Unknown unknown Verified 08/15/20 12:16 doxycycline AdvReac Severe N/V Verified 08/15/20 12:16 Contrast Media Allergy Unknown UNKNOWN Uncoded 08/15/20 12:16 Review of Systems Review of Systems: Narrative: CONSTITUTIONAL: Denies fever, chills, or sweats. EYES: Denies visual changes, redness, or discharge. ENT: Denies rhinorrhea, congestion, sore throat, or otalgia. CARDIOVASCULAR: Denies chest pain, palpitations, or edema. RESPIRATORY: Denies cough or dyspnea. GASTROINTESTINAL: Denies abdominal pain, nausea, vomiting, or diarrhea. GENITOURINARY: Denies dysuria or hematuria. SKIN: Denies rash or itching. MUSCULOSKELETAL: Denies back pain, joint pain, or myalgia. NEUROLOGIC: Denies headache, numbness, or weakness. PSYCHIATRIC: Denies anxiety or depression. [facility] Past Medical History Medical History (Updated 08/15/20 @ 17:06 by Ricky Fortune MD) Allergic rhinitis Arrhythmia Arthritis COPD (chronic obstructive pulmonary disease) Depression DVT (deep venous thrombosis) GERD (gastroesophageal reflux disease) Hypertension Hypothyroidism Pneumonia Seasonal allergies Spinal stenosis Sweating Surgical History Surgical History H/O colectomy H/O parotidectomy History of cholecystectomy Family History Family History Mother Family history of malignant neoplasm of breast in first degree relative Family history of malignant neoplasm Family history of malignant neoplasm of bone Family history of malignant neoplasm of breast Father
[2020-08-15 16:33] LABS: Add Urine Microscopic? YES; Appearance Urine Cloudy (Clear); Bilirubin Urine Negative (Negative); Blood Urine 1+ (Negative); Color Urine Yellow (Yellow); Glucose Urine UA Negative (Negative); Ketones Urine Negative (Negative); Leukocyte Esterase Ur Negative LEU/UL (Negative); Mucus Urine Rare /lpf; Nitrate Urine Negative (Negative); Protein Urine Negative (Negative); Urobilinogen Urine Negative mg/dL (<2.0); WBC Urine 0-3 /hpf
--- NOTE | 2020-08-15 16:38 | PC.NURSE ---
Dr. Fortune at bedside to update pt and daughter, plan to transfer to [facility] d/t unstable thoracic compression fx
[2020-08-15 16:45] VITALS: BP 125/63; PULSE 71; RESP 20; O2SAT 98
--- NOTE | 2020-08-15 17:07 | PC.NURSE ---
Tej called for transport to [facility] ED. [facility] 1914, Trip # [id number]
--- NOTE | 2020-08-15 17:42 | PC.NURSE ---
[facility] ETA to [facility] ED 191. Pt has non-labored respirations on 2L NC. Pt and daughter updated on POC. Meal tray ordered, call light within reach
[2020-08-15] MEDS: ALPRAZolam (*CRX) 0.25 MG TABLET 0.5 MG PO (18:28)
[2020-08-15 18:40] VITALS: BP 118/62; PULSE 76; RESP 17; O2SAT 98
[2020-08-15 19:35] VITALS: BP 115/68; PULSE 68; RESP 18; O2SAT 99
--- NOTE | 2020-08-15 19:57 | PC.NURSE ---
[facility] updated ETA 1815
--- NOTE | 2020-08-15 20:03 | PC.NURSE ---
paul eta 2015
== END 2020-08-15 20:27 | disposition short-term general hospital (02) ==
PROVIDERS: Emergency Provider Emergency Medicine; PCP Family Medicine
DX: S22.080G Wedge compression fracture of T11-T12 vertebra, subsequent encounter for fracture with delayed healing (principal); J44.9 Chronic obstructive pulmonary disease, unspecified; F03.90 Unspecified dementia, unspecified severity, without behavioral disturbance, psychotic disturbance, mood disturbance, and anxiety; I10 Essential (primary) hypertension; Z86.718 Personal history of other venous thrombosis and embolism; M19.90 Unspecified osteoarthritis, unspecified site; K21.9 Gastro-esophageal reflux disease without esophagitis; Z90.49 Acquired absence of other specified parts of digestive tract; E89.2 Postprocedural hypoparathyroidism; F17.200 Nicotine dependence, unspecified, uncomplicated; I49.1 Atrial premature depolarization; R94.31 Abnormal electrocardiogram [ECG] [EKG]; I45.9 Conduction disorder, unspecified; Z79.82 Long term (current) use of aspirin; W19.XXXD Unspecified fall, subsequent encounter
CPT/HCPCS: 36415; 51701; 71045; 72131; 80053; 81001; 83605; 85025; 85610; 85730; 86140; 87040; 93005; 99285; A9270